=== PATIENT | male | born 1970 | race Caucasian/White ===

== ENCOUNTER 2020-01-11 06:01 | Day surgery (SDC) | payer BC, SELFPAY ==
[2019-12-14 11:22] VITALS: BMI 29.8
--- NOTE | 2020-01-10 22:13 | HP.PCM_ITS ---
History and Physical Date of Admission: 01/11/20 HISTORY OF PRESENT ILLNESS 49 year old male presents for evaluation of a soft tissue mass on the proximal helical root right ear with extension onto preauricular area. He states that it has been there for years. It has gotten larger over time. He denies fever. He denies infection. He denies trauma. He comes in today for further evaluation and treatment. PAST MEDICAL HISTORY Arthritis Back problem Frequent headaches High cholesterol PAST SURGICAL HISTORY back surgery hernia surgery ALLERGIES prednisone MEDICATIONS atorvastatin pindolol FAMILY HISTORY Grandmother - Diabetes Father - Hypertension Mother - High cholesterol Grandfather - CVA (cerebral vascular accident) SOCIAL HISTORY Smoking Status: Never smoker alcohol intake: never substance use type: does not use REVIEW OF SYSTEMS General - Denies fever, fatigue, and weight loss. Eyes - Denies cataracts and glaucoma. ENT - Denies nasal congestion and sore throat. Endocrine - Denies excessive thirst and urination. Skin - Denies suspicious lesions and skin cancer. Musculoskeletal - Denies weakness of muscles and joints. History of of joint stiffness and pain and back pain. Has a history of back surgery on L2-L3 disc in 1997 and 2002. History of broken right ankle in 1983. Neuro - History of headaches. Cardiovascular - Denies chest pain, fatigue, and shortness of breath with exertion. Hypercholesterolemia. Psych - Denies anxiety and depression. Respiratory - Denies chronic cough and shortness of breath. Gastrointestinal - Denies nausea, vomiting, diarrhea, and constipation. History of hernia repair 2000. Hematologic - Denies abnormal bruising and bleeding. Genitourinary - Denies hematuria and urinary frequency. PHYSICAL EXAMINATION General - Alert and oriented. HEENT - PERRL. EOMI. Throat is clear. On the proximal helical root right ear with extension onto preauricular area. Measures 2.2 x 1.5 cm. No evidence of infection. No ulceration. Mass is nontender. Neck - Supple and non-tender. No cervical adenopathy. Lungs- Clear to auscultation. Heart - Regular rate and rhythm. Abdomen - Soft and non distended. Extremities - FROM. No axillary adenopathy. Radial pulses are palpable. Neuro - CN II-XII grossly intact. Psych - Normal mood and affect. ASSESSMENT 2.2 cm soft tissue mass proximal helical root right ear with extension onto preauricular area. PLAN Recommend excision of this soft tissue mass proximal helical root right ear with extension onto preauricular area. Will send mass to Pathology for analysis to rule out carcinoma. If there is adherence to cartilage in the ear, it will be excised. If the overlying skin is adherent to the mass, it may be excised. Reconstruction may be with a skin graft or a skin flap. Surgery will be done under local anesthesia and IV sedation on an outpatient basis. Patient was informed of the risks and complications of the procedure including alternatives to surgery. These were discussed with the patient personally. Patient voices understanding and wishes to proceed. Some of the risks and complications were included in a form from the [employer]. We discussed the current risks associated with COVID-19. While it is understood that there is a community spread of COVID-19, the risk of maurice COVID-19 while at [facility] ([facility]) is very low; however, the risk cannot be completely mitigated because of the community spread of the disease. We discussed in detail the risk of exposure to and/or potential harm posed by the COVID-19 virus with having a surgery/procedure at this time versus the risk of delaying the surgery/procedure. It is not possible to know either the risk of delaying the surgery or procedure or chance of getting an infection with perfect accuracy, but a joint decision was made to proceed at this time with the scheduled surgery/procedure as indicated on the consent form. Patient was notified that we will need to comply with any screening or testing [facility] wishes to perform or that surgery may be delayed for any positive results. Discussed with the patient that I was tested for COVID-19 on 12/16/19. My test was negative. My testing regimen at this time is to be COVID-19 tested every 2 weeks or so. I was recently tested on 12/30/19, and that test was negative. Procedure Criteria Procedure Type: Elective COVID Risk Discussion: The surgeon/proceduralist and patient have discussed in detail the risk of exposure to and/or potential harm posed by the COVID-19 virus with having a surgery/procedure at this time versus the risk of delaying the surger y/procedure. It is not possible to know either the risk of delaying the surgery or procedure or chance of getting an infection with perfect accuracy, but a joint decision was made between the patient and the surgeon/proceduralist to proceed at this time with the scheduled surgery/procedure as indicated on the consent form.
[2020-01-11 06:55] VITALS: BP 151/90; PULSE 80; RESP 16; TEMP 36.9; O2SAT 100; BMI 29.7
[2020-01-11] MEDS: Lactated Ringers 1,000 ML 100 ML IV (07:05)
--- NOTE | 2020-01-11 07:15 | EKG12_ITS ---
Test Reason : PREOP Blood Pressure : / mmHG Vent. Rate : 074 BPM Atrial Rate : 074 BPM P-R Int : 130 ms QRS Dur : 092 ms QT Int : 384 ms P-R-T Axes : 033 072 050 degrees QTc Int : 426 ms Normal sinus rhythm Normal ECG No previous ECGs available Confirmed by STANLEY JUAN ([id number]), market editor AURORA CID ([id number]) on 01/13/2020 11:28:19 AM Referred By: Juvencio Eden Confirmed By:STANLEY JUAN
--- NOTE | 2020-01-11 07:30 | MASS_PTH ---
PATIENT: FRANK KRAMER LOC: [facility] [place] U#:[id number] AGE/SX: 49/M ROOM: RE01/11/[address]: Dr. Juvencio Eden MD : 1970 BED: DIS: 01/11/2020 SPEC #: [id number] RECD: 01/11/20 08:58 STATUS: TATUM ROMIE #: [id number] DELFIN: 01/11/20 07:[address]: Juvencio Eden DEPT: SURGICAL PATHOLOGY RECD BY: Felipa Doyle ENTERED: 01/11/20 14:32 SP TYPE: Mass OTHR DR: Dr. Regis Dillon III, MD Tissues: Maunie of ear Procedures: Surgery Specimen Level III HEADER OPERATION: Excision 2.2 cm soft tissue mass proximal helical root right ear PRE-OP DIAGNOSIS: 2.2 cm soft tissue mass proximal helical root right ear with extension onto preauricular area TISSUE SUBMITTED: 2.2 cm soft tissue mass proximal helical root right ear with extension onto preauricular area MICROSCOPIC DIAGNOSIS 2.2 cm soft tissue mass proximal helical root right ear with extension onto preauricular area, excision: Epidermal inclusion cyst with focal chronic inflammation, histiocytic reaction and foreign body giant cell reaction. SONYA:veronica 01/12/20 MICROSCOPIC DESCRIPTION Slides are reviewed. GROSS DESCRIPTION Received in fixative is one container labeled with the patient's name and designated 2.2 cm soft tissue mass proximal helical root right ear with extension onto preauricular area. The specimen consists of a piece of skin with underlying tissue. The skin piece measures 2 x 0.3 cm. The underlying tissue measures 2 x 1.2 x 1.5 cm. Sections of the underlying tissue consists of a cyst filled with hernandez sebaceous material. Child Care Aide sections are submitted in one cassette. / SJ:veronica 01/11/20 TC:5 CPT: 88307
[2020-01-11] MEDS: Mupirocin Ointment 22gm Tube 1 APPLIC (08:14)
--- NOTE | 2020-01-11 08:18 | OP.PCM_ITS ---
Report of Operation Date of Procedure: 01/11/20 Pre-Operative Diagnosis: 2.2 cm soft tissue mass proximal helical root right ear with extension onto preauricular area. Post-Operative Diagnosis: Same. Surgery/Procedure Performed:: Excision 2.2 cm soft tissue mass proximal helical root right ear with extension onto preauricular area with 2.2 cm layered closure. Description of Surgical Findings:: 49 year old male presents for evaluation of a soft tissue mass on the proximal helical root right ear with extension onto preauricular area. He states that it has been there for years. It has gotten larger over time. He denies fever. He denies infection. He denies trauma. Patient was informed of the risks and complications of the procedure including alternatives to surgery. These were discussed with the patient personally. Patient voices understanding and wishes to proceed. Some of the risks and complications were included in a form from the [employer]. 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 Specimen's removed: Soft tissue mass proximal helical root right ear with extension onto preauricular area to Pathology. Drains: None. Estimated Blood Loss (mL): 5 ml. Description of Procedure: Patient was taken to OR in supine position and was given IV sedation. The right ear area was prepped and draped in the usual fashion. SCD's were placed for DVT prophylaxis. Perioperative antibiotics were given intravenously. For the procedure, I wore an N95 mask and wore proper eyewear protection. The mass was infiltrated with a regional auricular block using xylocaine and epinephrine. After waiting 5 minutes for the anesthetic to take effect, I made an oblique elliptical incision over the mass and dissected into the subcutaneous tissue. The mass was well encapsulated and looked clinically like a lipoma. The mass was dissected free and the surrounding scar tissue was dissected free and sent to Pathology for analysis to rule out carcinoma. The soft tissue mass was not adherent to the underlying cartilage. Some of the overlying skin was adherent to the mass and was excised with the soft tissue mass. Less skin needed to be removed than anticipated. Therefore no skin grafting is needed today. Since there was no adherence of the mass to the cartilage, no ear flaps will be needed today as well. Hemostasis was obtained with electrocautery. The wound was closed primarily in a layered fashion with 5-0 Monocryl interrupted sutures for the deep dermis and subcutaneous tissue. The skin was approximated with 6-0 Prolene simple interrupted sutures. Antibiotic ointment was applied to the suture line. Patient tolerated the procedure well and was sent to PACU in satisfactory condition. Patient will be sent home on antibiotics and pain medication. He will keep his head elevated during the initial postoperative period. Patient will followup in a week for a wound check and for discussion of the pathology report and for removal of the sutures. Grafts/Implants Used: None. - Complications None. - Admit VTE Documentation VTE Present on Admission: No VTE Mechan Device Prophylaxis: SCD's VTE Pharm Prophylaxis ordered?: No Surgery Charges CPT - 35341 ICD-10 - H93.8x1
[2020-01-11 08:25] VITALS: BP 125/85; BP 151/90; PULSE 80; RESP 16; TEMP 36.1; O2SAT 94
--- NOTE | 2020-01-11 08:26 | PCM.DC ---
You will use the following diet at home:: No restrictions Discharge Activity: May not drive while taking narcotic pain medications., May Shower - in two days., - - keep head elevated. no heavy lifting. May shower in (days): 2 May resume sexual activity in: No Restrictions Weight Bearing Status: Weight bearing as tolerated Lifting Restrictions: 20 lbs. Keep extremity elevated above heart level: - - elevate head. Call your doctor if your incision/area has: Continuous Slow Oozing, Sudden Increased Bleeding, Increased Pain/ Swelling, Increased Redness, Foul Smelling Discharge, Swelling at the incision site Call your doctor if you observe: Fever of 101 or Higher, Coldness, Increased Pain, Shortness of breath, Chest pain, Calf discomfort, Uncontrolled pain Suture Line Care: - - apply antibiotic ointment to suture line daily. Cleanse incision/area with: - - may get incision wet in the shower in two days. Allergies/Adverse Reactions: Allergies prednisone Adverse Reaction (Severe, Verified 01/11/20 06:53) MAJOR HEADACHES Medications to take at Discharge atorvastatin 20 mg tablet 20 mg PO QHS 11/18/19 pindolol 5 mg tablet 5 mg PO QHS tab 11/18/19 Multivitamin 1 ea PO DAILY 01/03/20 Clindamycin HCl [Cleocin] 300 mg PO TID #12 cap 01/11/20 Oxycodone HCl/Acetaminophen [Percocet 5/325] 1 tablet PO Q6H PRN PRN 4 Days #15 tablet 01/11/20 The following prescriptions were given: Clindamycin HCl [Cleocin] 300 mg PO TID #12 cap Transmission Status: Pending to [facility]/pharmacy #[id number] Oxycodone HCl/Acetaminophen [Percocet 5/325] 1 tablet PO Q6H PRN PRN 4 Days #15 tablet PRN Reason: Pain Score 4-5/10 Transmission Status: Received by [facility]/pharmacy #[id number] Primary Care Physician: Regis Dillon III, MD [Primary Care Provider] - Test Results: Test results from this visit will be discussed in further detail at your follow-up appointment, if applicable. Please Follow Up With: Juvencio Eden MD When: one week. call [phone] for appt. Proposed Discharge Date: 01/11/20
[2020-01-11 08:30] VITALS: BP 125/84; BP 151/90; PULSE 78; RESP 16; O2SAT 95
[2020-01-11 08:35] VITALS: BP 120/81; BP 151/90; PULSE 78; RESP 16; O2SAT 95
[2020-01-11 08:40] VITALS: BP 116/77; BP 151/90; PULSE 95; RESP 16; TEMP 36.3; O2SAT 95
[2020-01-11 09:12] VITALS: BP 120/80; BP 151/90; PULSE 84; RESP 18; TEMP 36.5; O2SAT 96
== END 2020-01-11 09:14 | disposition home or self-care (01) ==
LOC: SDC 06:05 → AC 06:11
PROVIDERS: Anesthesiology; PCP Family Medicine; Referring Provider Surgery; Visit Provider Surgery
PROC: (CPT 11443; principal; 2020-01-11 07:15)
DX: H93.8X1 Other specified disorders of right ear (principal); L72.0 Epidermal cyst; Z11.59 Encounter for screening for other viral diseases; M19.90 Unspecified osteoarthritis, unspecified site; E78.00 Pure hypercholesterolemia, unspecified; Z79.899 Other long term (current) drug therapy
CPT/HCPCS: 11443; 12051; 87635; 88304; 93005; G2023; J7120; U0003

== ENCOUNTER → 2022-10-09 | Outpatient (CLI) | payer OTHER, SELFPAY ==
[2022-10-09 11:06] LABS: Absolute Lymphocyte Count 1.96 X10^3/uL (0.83-4.51); Absolute Neutrophil Count 3.5 X10^3/uL (2.0-7.7); Basophil% 1.5 % (0-1); Eosinophils% 5.8 % (0-5); Hematocrit 47.2 % (40-54); Hemoglobin 15.3 g/dL (13.0-16.5); Lymphocyte # 1.96 X10^3/ul (0.83-4.51); Lymphocyte % 28.5 % (19-41); Mean Corp Hgb Conc 32.4 g/dL (32-36); Mean Corpuscular Hgb 29.3 pg (27.0-32.0); Mean Corpuscular Volume 90.2 fL (80-94); Monocyte# 0.89 X10^3/uL; NRBC Flagged by Analyzer 0 % (0-5); Neutrophil # 3.49 X10^3/uL (2.7-7.7); Neutrophil % 50.8 % (47-70); Platelet Count 275 K/mm3 (150-450); RBC Distribution Width CV 12.3 % (11.6-14.6); RBC Distribution Width SD 40.5 fl (35.1-43.9); Red Blood Count 5.23 M/mm3 (4.6-6.2); White Blood Count 6.9 K/mm3 (4.4-11.0)
[2022-10-09 11:36] LABS: Anion Gap 1 (5-15); BUN 21 mg/dL (7-18); BUN/Creat Ratio 21.4 RATIO (10-20); Calcium,Total 9.3 mg/dL (8.5-10.1); Chloride 106 mmol/L (98-107); Creatinine, Serum 0.98 mg/dL (0.70-1.30); EST Glomerular Filtration Rate 86 mL/min (>60); Est Glom Filt Rate - Afr Amer 104 mL/min (>60); Glucose 113 mg/dL (74-106); Potassium 4.2 mmol/L (3.5-5.1); Sodium Level 136 mmol/L (136-145)
== END | disposition home or self-care (01) ==
LOC: LAB 10:36
PROVIDERS: PCP Registered Nurse; Referring Provider Internal Medicine Cardiovascular Disease; Visit Provider Internal Medicine Cardiovascular Disease
DX: E78.5 Hyperlipidemia, unspecified (principal); R07.9 Chest pain, unspecified
CPT/HCPCS: 36415; 80048; 85025

== ENCOUNTER 2022-10-21 07:30 | Day surgery (SDC) | payer OTHER, SELFPAY ==
--- NOTE | 2022-10-17 16:24 | RAD_ITS ---
INDICATION: chest pain EXAMINATION/TECHNIQUE: X-RAY - XR Chest 2 Views COMPARISON: None. FINDINGS: LINES/DEVICES: None. LUNGS: No consolidation, edema or effusion. No pneumothorax. MEDIASTINUM AND CARDIOVASCULAR STRUCTURES: Cardiac silhouette not enlarged. Central airways and mediastinal contour are unremarkable. BONES AND SOFT TISSUES: Unremarkable. RAD/Chest PA and Lateral IMPRESSION: No radiographic evidence of acute cardiopulmonary disease. Electronically Signed: Chadd Daniel MD at 23:07 EDT ,
[2022-10-18 09:16] VITALS: BMI 31.9
--- NOTE | 2022-10-21 08:43 | CL.D_ITS ---
Patient Name: FRANK KRAMER Study Date: 10/21/2022 Performing: Alex Garcia MD Ht: 74 inches 187.96 cm : 1970 Wt: 248.99 lbs 112.94 kg Age: 52 Gender: male BSA: 2.39 PROCEDURE(S) PERFORMED DC01-(27300)LHC/COR/LV CLINICAL PROFILE AND INDICATIONS Indications: New Onset Angina <= 2 months Heart Failure: None Stress/Imaging Stress/Image Study Performed: No CAD Presentations: Stable angina. CONCLUSIONS Non obstructive coronary arteries RECOMMENDATIONS Medical therapy DESCRIPTION OF PROCEDURE The patient arrived to the procedure lab. The risks and benefits of the procedure as well as a full description of our services here and current unavailability of surgical backup were fully explained to the patient and/or their significant other prior to the catheterization. The Timeout was completed, verifying the correct patient and procedure. The patient's procedural site was prepped and draped in the usual fashion. Local anesthetic was given subcutaneously to right radial region with Lidocaine 2%. Using a modified Seldinger technique, arterial access was obtained via the right radial artery, a 6Fr sheath was inserted. Left Coronary Artery selective angiography was performed in multiple views using a 5 Fr. 4.0 Alvarado catheter. Right Coronary Artery selective angiography was then performed in multiple views using a 5 Fr. 4.0 Alvarado catheter. Left Ventriculography was performed in [place] projection using a 5 Fr. Pigtail catheter. LV to AO pullback pressures were then recorded.The arterial sheath was pulled and a TR Band was applied for hemostasis CORONARY ANGIOGRAPHY DOMINANCE: Right Dominant LEFT HEART ASSESSMENT Left Ventricular Ejection Fraction: by LV Gram 65 % Normal LV wall motion Normal Left Ventricular systolic function LEFT MAIN: 10% ostial LEFT ANTERIOR DESCENDING ARTERY: No significant disease noted CIRCUMFLEX ARTERY: No significant disease noted RIGHT CORONARY ARTERY: No significant disease noted COMPLICATIONS No Complications PROCEDURE MEDICATIONS Versed 1 mg IV Fentanyl 50 mcg IV Versed 1 mg IV Versed 1 mg IV Oxygen: 2 L/min via nasal cannula Heparin given IA 10/21/2022 08:28:10 Verapamil 2.5mg, Ntg 100mcgs, 3000 units of Heparin given IA 10/21/2022 08:28:10 SUMMARY OF HEMODYNAMIC DATA Time AIR REST ECG 07:51:18 ECG 08:10:26 Art 149/82 (110) 08:24:26 AO 123/90 (106) SA 08:29:05 LV 106/5, 12 08:33:54 LV 109/6, 11 08:33:58 LV 124/8, 13 08:34:04 LV 107/8, 17 08:34:37 LVp 129/11, 15 08:34:42 AOp 123/76 (98) 08:34:47 Signed By Alex Garcia MD On 10/21/2022 08:43:11 Alex Garcia MD
== END 2022-10-21 10:30 | disposition home or self-care (01) ==
PROVIDERS: PCP Registered Nurse; Referring Provider Internal Medicine Cardiovascular Disease; Visit Provider Internal Medicine Cardiovascular Disease
DX: R07.9 Chest pain, unspecified (principal); I47.1 Supraventricular tachycardia; I20.9 Angina pectoris, unspecified; E03.8 Other specified hypothyroidism; E78.5 Hyperlipidemia, unspecified; Z86.16 Personal history of COVID-19; Z86.711 Personal history of pulmonary embolism
CPT/HCPCS: 71046; 93458; 99152; J7040; C1769; C1894; Q9967

== ENCOUNTER → 2023-11-06 | Outpatient (CLI) | payer OTHER, SELFPAY ==
--- NOTE | 2023-11-06 09:49 | CDU_ITS ---
Reason For Study: dizziness Rt. Velocities/BP Lt. Velocities/BP Prox CCA 97.1/22.3 cm/sec. Prox CCA 97.1/27.8 cm/sec. Mid CCA 112.4/24.5 cm/sec. Mid CCA 102.5/31.1 cm/sec. Dist CCA 100.3/27.8 cm/sec. Dist CCA 86.1/25.6 cm/sec. Prox ICA 89.4/26.7 cm/sec. Prox ICA 61.9/17.9 cm/sec. Mid ICA 67.4/26.7 cm/sec. Mid ICA 68.5/24.5 cm/sec. Dist ICA 72.9/28.9 cm/sec. Dist ICA 68.5/31.1 cm/sec. Rt. ICA/CCA = .8. Lt. ICA/CCA = .7. Prox ECA 89.4/16.8 cm/sec. Prox ECA 88.3/13.5 cm/sec. Rt. Vert. 42.1/13.5 cm/sec. Lt. Vert. 35.5/12.4 cm/sec. Right Extracranial There is intimal thickening but no significant atherosclerotic plaque noted in the right common carotid artery. There is intimal thickening but no significant atherosclerotic plaque noted in the right internal carotid artery. There is intimal thickening but no significant atherosclerotic plaque noted in the right external carotid artery. Antegrade flow is noted in the right vertebral artery. Left Extracranial There is intimal thickening but no significant atherosclerotic plaque noted in the left common carotid artery. There is intimal thickening but no significant atherosclerotic plaque noted in the left internal carotid artery. There is intimal thickening but no significant atherosclerotic plaque noted in the left external carotid artery. Antegrade flow is noted in the left vertebral artery. Procedure Carotid Duplex 47114. This is a Carotid Duplex examination using B-mode, color flow and specral Doppler. The exam was diagnostic. Exam performed in department. VL/Carotid Duplex Ultrasound Interpretation Summary Normal right extracranial internal carotid. Normal left extracranial internal carotid. Patent and antegrade vertebrals bilaterally. Ordering Physician: Korin Reyes Referring Physician: Korin Reyes Performed By: Denver Pratt Orlin
== END | disposition home or self-care (01) ==
LOC: CVS 09:49
PROVIDERS: PCP Registered Nurse; Referring Provider Physician Assistant Medical; Visit Provider Physician Assistant Medical
DX: R42 Dizziness and giddiness (principal); E78.2 Mixed hyperlipidemia
CPT/HCPCS: 93880

== ENCOUNTER → 2024-06-03 | Outpatient (CLI) | payer OTHER, SELFPAY ==
[2024-06-03 16:15] LABS: AST(SGOT) 28 U/L (15-37); Alanine Aminotransfer ALT/SGPT 43 U/L (16-61); Albumin, Serum 3.8 g/dL (3.2-5.0); Alkaline Phosphatase 85 U/L (45-117); Bilirubin, Direct 0.12 mg/dL (0.00-0.30); Cholesterol 155 mg/dL (200); Globulin 3.4 g/dL (2.2-4.2); High Density Lipoprotein 51 mg/dL; Protein, Total 7.2 g/dL (6.4-8.2); Triglycerides 111 mg/dL; Very Low Density Lipoprotein 22 mg/dL (5-40)
== END | disposition home or self-care (01) ==
LOC: LAB 15:24
PROVIDERS: PCP Registered Nurse; Referring Provider Internal Medicine Cardiovascular Disease; Visit Provider Internal Medicine Cardiovascular Disease
DX: E78.2 Mixed hyperlipidemia (principal)
CPT/HCPCS: 36415; 80061; 80076